=== PATIENT | male | born 1945 | race Caucasian/White ===

== ENCOUNTER 2023-02-20 07:51 | Observation (INO) ==
--- NOTE | 2023-02-11 08:56 | Anesthesiology Consultation ---
Date of Service February 11, 2023 Assessment & Plan (1) Encounter for pre-operative examination: Plan - check BSG am DOS. - Per teacher on 02/11/2023: No known infectious disease contacts, current infectious disease symptoms in past 10 days or COVID positive test result in the past 30 days. Chart Review Chart Review: Acceptable Risk for Surgery and Patient NOT seen in Pre Admission Testing History Surgery Operation Date: 02/20/23 07:30 Proposed Procedures p Robotic Laparoscopic Assisted Partial Nephrectomy - Yuri Herring MD Height/Weight Height: 5 ft 9 in Weight: 90.718 kg Allergies Allergy/AdvReac Type Severity Reaction Status Date / Time No Known Allergies Allergy Verified 02/11/23 08:11 Medications Home Medications Medication Instructions Recorded Confirmed Last Taken amlodipine 10 mg tablet 10 mg PO QPM 05/15/21 02/11/23 Unknown aspirin 81 mg chewable tablet 81 mg PO DAILY 05/15/21 02/11/23 Unknown atorvastatin 20 mg tablet 20 mg PO QPM 05/15/21 02/11/23 Unknown benazepril 40 mg tablet 40 mg PO QAM 05/15/21 02/11/23 Unknown blood sugar diagnostic (Contour 05/15/21 12/18/22 Unknown Next Test Strips) brimonidine 0.2 %-timolol 0.5 % 1 drp ophthalmic (eye) BID 05/15/21 02/11/23 Unknown eye drops (Combigan) latanoprost 0.005 % eye drops 1 drp ophthalmic (eye) HS 05/15/21 02/11/23 Unknown (Xalatan) metformin 1,000 mg tablet 1,000 mg PO BID 05/15/21 02/11/23 Unknown metoprolol tartrate 25 mg tablet 12.5 mg PO BID 05/15/21 02/11/23 Unknown multivitamin 1 tab PO QAM 05/15/21 02/11/23 Unknown Macu-Health 1 tab PO QAM 02/11/23 02/11/23 Unknown coenzyme Q10 100 mg capsule (Co 100 mg PO QAM 02/11/23 02/11/23 Unknown Q-10) semaglutide 14 mg tablet (Rybelsus) 14 mg PO QAM 02/11/23 02/11/23 Unknown Past Medical History Medical History [place] (hard of hearing) no hearing aides Renal mass High cholesterol Kidney stones remote hx - passed on his own. Diabetes mellitus NIDDM HTN (hypertension) Past Family History Family History Other No family history of adverse response to anesthesia Past Surgical History Surgical History History of tooth extraction Social History Smoking Status: Current every day smoker Do You Dip or Chew Tobacco: No Hx Alcohol Use: No Hx Substance Use: No substance use type: does not use Testing Laboratory Results 02/04/2023 WBC: 8.4 H/H: 15/45 PLATELETS: 329 SODIUM: 136 POTASSIUM: 4.4 CHLORIDE: 105 CO2: 25 BUN: 17 CREATININE: 0.9 GLUCOSE: 267 Urine culture: no growth at 48 hours. Electrocardiogram Date: 02/04/23 Ectopic atrial rhythm, rate 64 bpm Chest X-Ray Date: 02/04/23 Overall appearance of the lungs suggests emphysema. There is no evidence of focal abnormality at this time. Other Testing Abdomen pelvis CT 11/12/22 1. Again seen is a 3.0 cm enhancing mass lesion in the interpolar right kidney. This has modestly increased in size as compared to 11/13/2021 and a renal n eoplasm remains the diagnosis of exclusion. 2. No additional enhancing lesion is seen in either kidney. 3. There is no evidence of metastatic disease in the abdomen or pelvis. 4. Advanced colonic diverticulosis without CT evidence of acute diverticulitis. 5. Right-sided nephrolithiasis. 6. Prostatomegaly with evidence of chronic bladder outlet obstruction. 7. Numerous bladder calculi are again noted. 8. Cholelithiasis. 9. Additional findings as above.
[~2023-02-20 07:51] MED LIST: DEXAMETHASONE SOD INJ 4 MG/ML VIAL ONE; LIDOCAINE 2% 2 ML VIAL/AMP(20MG/ML) INFIL ONE; LR 15ML/HR IV SCH; ONDANSETRON INJ 2 MG/ML 2 ML VIAL ONE; PROPOFOL IV EMULSION 10 MG/ML 20 ML VIAL IV ONE; REMIFENTANIL HCL 1 MG VIAL IV ONE; ROCURONIUM BROMIDE 10 MG/ML 5 ML VIAL IV ONE; ceFAZolin 2000MG 2,000 MG/15 ML SYR IV SCH; fentaNYL citrate PF 100 MCG/2 ML VIAL ONE
[2023-02-20] MEDS ORDERED: BUPIVACAINE 0.5 % 5 MG/1 ML MPF 30ML VIAL ONE (08:37)
--- NOTE | 2023-02-20 09:23 | History & Physical Report ---
Date of Service February 20, 2023 Assessment & Plan (1) Renal mass: Plan: We reviewed the plan for laparoscopic robot-assisted right partial nephrectomy. We reviewed risks and benefits of the surgery. He expressed understanding and willingness to proceed. History of Present Illness Primary Care Provider: Fariha Harper MD This is a 77-year-old male followed by urology for right-sided renal mass. The mass has increased in size on surveillance, therefore he presents to the OR today for robot-assisted right partial nephrectomy. He denies any changes in his health. Allergies Allergy/AdvReac Type Severity Reaction Status Date / Time No Known Allergies Allergy Verified 02/20/23 08:25 Home Medications Medication Instructions Recorded Confirmed Type amlodipine 10 mg tablet 10 mg PO QPM 05/15/21 02/20/23 History aspirin 81 mg chewable tablet 81 mg PO DAILY 05/15/21 02/20/23 History atorvastatin 20 mg tablet 20 mg PO QPM 05/15/21 02/20/23 History benazepril 40 mg tablet 40 mg PO QAM 05/15/21 02/20/23 History blood sugar diagnostic (Contour 05/15/21 12/18/22 History Next Test Strips) brimonidine 0.2 %-timolol 0.5 % 1 drp ophthalmic (eye) BID 05/15/21 02/20/23 History eye drops (Combigan) latanoprost 0.005 % eye drops 1 drp ophthalmic (eye) HS 05/15/21 02/20/23 History (Xalatan) metformin 1,000 mg tablet 1,000 mg PO BID 05/15/21 02/20/23 History metoprolol tartrate 25 mg tablet 12.5 mg PO BID 05/15/21 02/20/23 History multivitamin 1 tab PO QAM 05/15/21 02/20/23 History Macu-Health 1 tab PO QAM 02/11/23 02/20/23 History coenzyme Q10 100 mg capsule (Co 100 mg PO QAM 02/11/23 02/20/23 History Q-10) semaglutide 14 mg tablet (Rybelsus) 14 mg PO QAM 02/11/23 02/20/23 History Past Med/Surg History Medical History [place] (hard of hearing) no hearing aides Renal mass High cholesterol Kidney stones remote hx - passed on his own. Diabetes mellitus NIDDM HTN (hypertension) Surgical History History of tooth extraction Family History Other No family history of adverse response to anesthesia Social History (Updated 05/15/21 @ 11:40 by Abida Hernandez) Smoking Status: Current every day smoker Tobacco Type: Pipe Second Hand Exposure: Yes (hx); Do You Dip or Chew Tobacco: No; Tobacco Cessation Education Requested by Patient: No Hx Alcohol Use: No Hx Substance Use: No Preferred Language: Mosotho Communication Ability: Effective [place] [employer] Member Required: No Beliefs That Will Affect Care: None marital status: Current Living Situation: Spouse current occupational status: retired Other Information That Helps Us Care for You: No Assistive Devices: Glasses Review of Systems 12 point review of systems negative except for otherwise indicated. Physical Exam Constitutional: well developed and well nourished; no acute distress Eyes: + anicteric sclerae; pupils not irregula r Respiratory: normal respiratory effort; no respiratory distress, does not use accessory muscles and no cough Cardiovascular: well perfused Gastrointestinal (Abdomen): Inspection/Auscultation: abdomen normal to inspection; abdomen not distended Musculoskeletal: Extremities: extremities normal to inspection Skin: normal turgor; no rashes and no lesions Neurologic: moves all extremities and awake Psychiatric: Orientation: alert and oriented x 3 Results & Data Vital Signs (Past 12 Hours) Vital Signs Temp Pulse Resp BP Pulse Ox O2 Del Method 02/20/23 08:27 37.1 C 74 20 156/79 H 97 Room Air
[2023-02-20] MEDS ORDERED: SURGICEL ABSORB HEMOSTAT 2IN X 14IN TOP ONE (10:03)
[2023-02-20] MEDS ORDERED: TISSEEL FIBRIN SEALANT 10ML TOP ONE (10:03)
[2023-02-20] MEDS ORDERED: FLOSEAL HEMOSTATIC MATRIX 10ML TOP ONE (10:03)
[2023-02-20] MEDS ORDERED: ePHEDrine sulfate 50 MG/5 ML SYR ONE (12:07)
[2023-02-20] MEDS ORDERED: HYDROmorphone INJ 2 MG/ML SYR/VIAL ONE (12:32)
[2023-02-20] MEDS ORDERED: SUGAMMADEX SODIUM 200 MG/2 ML VIAL IV ONE (12:36)
--- NOTE | 2023-02-20 13:26 | Operative Report ---
PG Post Operative Report Pre & Post Diagnosis Operation Date: 02/20/23 09:30 Pre-Op Diagnosis: Right Renal Mass Post-Op Diagnosis: Right Renal Mass I identified the patient and participated in the time-out.: Yes Procedure Operation Date: 02/20/23 09:30 Actual Procedures p Robotic assisted Laparoscopic Partial Nephrectomy-Right(Right) - Yuri Herring MD Surgeon Yuri Herring MD Board Mixer Tender VJ Luis Estimated Blood Loss 400 Findings Consistent with Post-Op Diagnosis Specimens Right renal mass Drains 16 [place] Pathak catheter per urethra [place] drain by right upper quadrant incision Anesthesia Type General Complications none Disposition Accompanied Patient To Recovery: Yes Disposition: Recovery Room Indications This is a 77-year-old male followed by urology for renal mass. The mass has been gradually increasing in size and he was not thought to be a candidate for ablation. He presents to the OR today for right partial nephrectomy. Description of Procedure The patient was identified and informed consent was obtained. He was marked on the right side and was brought to the operating room where general anesthesia was initiated. He was placed in a flank position with the right side elevated. All pressure points were carefully padded. A timeout was then performed. A surgical marker was used to draw a line approximately 7 cm to the left of the umbilicus, in the mid clavicular area. Anticipated port sites were marked starting approximately 2 fingerbreadths below the costal margin. Subsequent ports were anticipated to be 6 to 7 cm spaced down this line. An incision was made at the second anticipated site, then dissection was carried down to the fascia. A Veress needle was used to obtain access to the peritoneum. Good position was confirmed with a negative aspiration, appropriate drop test and low opening insufflation pressure. The abdomen was then inflated with CO2 to 15 mmHg. The first robotic port was then placed and the camera was inserted. The abdominal cavity was surveyed. There was no injury to abdominal viscera. There were some adhesions of the colon to the right wall. He had a small umbilical hernia. His liver was somewhat large. The remaining 3 robotic ports were placed under direct visualization. A 12 mm wet process miller head assistant port was then placed in the midline above the umbilicus. The robot was then docked. I reflected the colon along the white line of Toldt to expose Gerota's fascia. The duodenum was Kocherized. Once the colon was sufficiently reflected, the gonadal vessels and ureter were identified. This dissection was carried cephalad, his liver was in the way. A 5 mm port was placed to serve as a liver retractor. Eventually the renal hilum was identified and dissected. He had 1 renal artery and 1 renal vein. Adequate windows were dissected to facilitate placement of bulldog clamps on both vessels. I then turned my attention toward the renal mass. There is a prominent bulge on the lower pole of the kidney which was suspicious for the mass. Gerota's fascia was incised and the fat was dissected away to expose the renal mass and capsule. The intraoperative ultrasound was then introduced and used to survey this area of the kidney. The mass appeared to be approximately 3 cm in diameter. The bulldog clamps were then applied to the renal artery and the renal vein. There was good blanching of the kidney. The renal mass was sharply excised leaving a margin of normal-appearing kidney tissue around the mass itself. Any point bleeding vessels were cauterized. Once the mass was free from the kidney, renorrhaphy was performed using a 2 layer approach. A 2-0 V-Loc suture was placed in the deep portion of the kidney defect and secured using Hem-o-jerome clips on both sides. The renal capsule was then reapproximated using interrupted 2-0 V-Loc sutures also secured with Hem-o-loks and Lapra-Ty's. There was mild bleeding from the incision. The bulldog clips were then removed and there was still mild bleeding. An additional 2-0 Vicryl suture was placed across the bleeding area and a bolster of Surgicel was secured under the suture. At this point, there was good hemostasis. Total warm ischemia time was approximately 22 minutes. A layer of Surgicel and Tisseel and Floseal were applied to the resection area and the hilum. The renal mass was placed in a specimen bag. Final survey of the abdomen revealed good hemostasis and no injury to intra-abdominal contents. The robot was dedocked. The specimen was extracted through the wet process miller head assistant port in the midline and was sent for analysis labeled as left renal mass. A drain was left in place through the uppermost port. The incisions were then closed. The extraction site was closed using a deep 0 Vicryl running suture for the fascia. All wounds were anesthetized using 0.5% Marcaine. Skin was closed using running subcuticular 4-0 Monocryl for the ex traction site and buried interrupted 4-0 Monocryls for the robot sites. The drain was secured using a 3-0 nylon suture. The patient was then awakened from anesthesia and brought to the PACU in stable condition. All sponge and instrument counts were correct at the end of the case. Of note, Janelle ZABALA, acted as bedside wet process miller head assistant for the majority of the case, helping with initial positioning, access, retraction, dissection and with closing. Dr. Aman Valera, acted as bedside wet process miller head assistant for the mass excision and renorrhaphy. I attest to the content of the Intraoperative Record and any orders documented therein. Any exceptions are noted below.
[2023-02-20] MEDS ORDERED: fentaNYL citrate PF 100 MCG/2 ML VIAL ONE (13:29)
[2023-02-20] MEDS ORDERED: ePHEDrine sulfate 50 MG/ML AMP IV PRN (13:29)
[2023-02-20] MEDS ORDERED: ONDANSETRON INJ 2 MG/ML 2 ML VIAL IV PRN ×2 (13:29→15:19)
[2023-02-20] MEDS ORDERED: ATROPINE SULFATE 0.1 MG/ML 10ML SYR IV PRN (13:29)
[2023-02-20] MEDS: fentaNYL citrate PF 100 MCG/2 ML VIAL IV PRN ×4 (13:29→13:44)
[2023-02-20] MEDS: HYDROmorphone INJ 1 MG/ML SYRINGE IV PRN ×8 (13:49→14:25)
[2023-02-20] MEDS ORDERED: NovoLIN-R INSULIN PER UNIT CHARGE ONE (13:57)
[2023-02-20] MEDS ORDERED: NovoLIN-R INSULIN PER UNIT CHARGE IV ONE (14:00)
[2023-02-20 14:48] LABS: Hematocrit (blood only) 43.8 % (42.0-52.0); Hemoglobin 14.7 g/dl (14.0-18.0); Mean Corpuscular Hemoglobin 28.8 pg (25.0-34.0); Mean Corpuscular Hgb Conc 33.6 g/dL (32.0-36.0); Mean Corpuscular Volume 85.7 fL (80.0-100.0); Mean Platelet Volume 9.8 fL (9.4-12.4); Platelet Count 297 K/uL (130-400); RDW Coefficient of Variation 13.4 % (11.5-14.5); RDW Standard Deviation 41.9 fL (36.4-46.3); Red Blood Count 5.11 M/uL (4.70-6.10); White Blood Count 13.35 K/ul (4.8-10.8)
[2023-02-20 14:51] LABS: BUN Creatinine Ratio 16.1 (10-20); Calcium 8.5 mg/dl (8.6-10.3); Creatinine Clr Calc Pharmacy 65.3 ml/min; Est GFR (African American) 90.2 ml/min; Est GFR (Non-African American) 77.8 ml/min; Potassium 4.4 mmol/L (3.5-5.1)
[2023-02-20 15:10] LABS: Basophils # (auto) 0.03 K/uL (0.00-0.20); Basophils % (auto) 0.2 %; Eosinophils # (auto) 0.05 K/uL (0.00-0.50); Eosinophils % (auto) 0.4 %; Immature Granulocytes # (auto) 0.06 K/uL (0.01-0.20); Immature Granulocytes % (auto) 0.4 %; Lymphocytes # (auto) 0.63 K/uL (1.20-3.40); Lymphocytes % (auto) 4.7 %; Monocytes # (auto) 0.07 K/uL (0.11-0.59); Monocytes % (auto) 0.5 %; Neutrophils # (auto) 12.51 K/uL (1.40-6.50); Neutrophils % (auto) 93.8 %
[2023-02-20] MEDS ORDERED: PHARMACY GLYCEMIC MGMT CONSULT PRN (15:19)
[2023-02-20] MEDS ORDERED: MoRPHine SULFATE 2 MG/ML CARP IV PRN (15:19)
[2023-02-20] MEDS ORDERED: oxyCODONE HCL IR 5 MG TAB (IMMEDIATE RELEASE) PO PRN (15:19)
[2023-02-20] MEDS ORDERED: MoRPHine SULFATE 4 MG/ML 1 ML CARP\\VIAL IV PRN (15:19)
[2023-02-20] MEDS: oxyCODONE HCL IR 5 MG TAB (IMMEDIATE RELEASE) PO PRN (15:55)
[2023-02-20] MEDS: LACTATED RINGER'S 1,000 ML IV SCH (16:00)
--- NOTE | 2023-02-20 16:06 | Anesthesiology Progress Note ---
Date of Service February 20, 2023 Anesthesia Post Procedure Vital Signs Vital Signs: Temp Pulse Pulse Resp BP Pulse Ox O2 Del Method 02/20/23 15:56 36.4 C L 83 18 151/87 H 97 Room Air 02/20/23 15:25 36.8 C 78 18 157/71 H 96 Room Air 02/20/23 15:10 66 19 133/67 97 Room Air 02/20/23 14:55 74 14 144/77 H 95 Room Air 02/20/23 14:40 36.2 C L 77 24 151/83 H 96 Room Air 02/20/23 14:30 75 13 126/60 95 Room Air 02/20/23 14:20 66 11 L 134/59 L 92 Room Air 02/20/23 14:10 70 16 130/60 93 Room Air 02/20/23 14:00 71 17 144/73 H 93 Room Air 02/20/23 13:50 71 19 156/88 H 94 Room Air 02/20/23 13:40 73 16 154/80 H 95 Room Air 02/20/23 13:30 77 12 123/80 97 Room Air 02/20/23 13:20 74 18 147/80 H 96 Room Air 02/20/23 13:13 36.4 C L 76 24 158/84 H 98 Oxymask 02/20/23 08:27 37.1 C 74 20 156/79 H 97 Room Air O2 Flow Rate 02/20/23 15:56 02/20/23 15:25 02/20/23 15:10 02/20/23 14:55 02/20/23 14:40 02/20/23 14:30 02/20/23 14:20 02/20/23 14:10 02/20/23 14:00 02/20/23 13:50 02/20/23 13:40 02/20/23 13:30 02/20/23 13:20 02/20/23 13:13 6 02/20/23 08:27 Pain Intensity Right Abdomen: Pain Intensity: 10 Transfer of Care Handoff Completed per policy Notes Mental Status: alert / awake / arousable Patient Amnestic to Procedure: Yes Nausea / Vomiting: adequately controlled Pain: adequately controlled Airway Patency, RR, SpO2: stable & adequate BP & HR: stable & adequate Hydration State: stable & adequate Anesthetic Complications: no major complications apparent and Pt Satisfied with anesthetic care Notes: Patient glucose >350 in PACU. Administered 8 u IV insulin. Trending downward.
[2023-02-20] MEDS ORDERED: CARBOHYDRATES FOR HYPOGLYCEMIA PO PRN (16:15)
[2023-02-20] MEDS ORDERED: GLUCOSE 10 TAB/TUBE PO PRN (16:15)
[2023-02-20] MEDS ORDERED: GLUCAGON FOR INJ 1 MG VIAL IM PRN (16:15)
[2023-02-20] MEDS ORDERED: GLUCOSE 40% GEL 15 GM TUBE PO PRN (16:15)
[2023-02-20] MEDS ORDERED: DEXTROSE 50% 50 ML SYRINGE IV PRN (16:15)
[2023-02-20] MEDS: ceFAZolin 2000MG 2,000 MG/15 ML SYR IV SCH (17:09)
[2023-02-20] MEDS: INSULIN ASPART PER UNIT CHARGE SC SCH ×2 (17:18→21:09)
[2023-02-20] MEDS: ACETAMINOPHEN 325 MG TAB PO SCH (18:28)
[2023-02-20] MEDS ORDERED: amLODIPine BESYLATE 5 MG TAB PO SCH (21:00)
[2023-02-20] MEDS ORDERED: LATANOPROST 0.005% OP SOLN 2.5 ML BTL OP SCH (21:00)
[2023-02-20] MEDS ORDERED: ATORVASTATIN 20 MG TAB PO SCH (21:00)
[2023-02-20] MEDS: TIMOLOL OPB SCH (21:07)
[2023-02-20] MEDS: BRIMONIDINE TARTRATE OPB SCH (21:07)
[2023-02-20] MEDS: DOCUSATE SODIUM 100 MG CAP PO SCH (21:10)
[2023-02-20] MEDS: METOPROLOL TARTRATE 25 MG TAB PO SCH (21:10)
[2023-02-20] MEDS ORDERED: LANTUS PER UNIT CHARGE SC ONE (21:30)
[2023-02-21] MEDS: INSULIN ASPART PER UNIT CHARGE SC SCH ×4 (00:15→12:17)
[2023-02-21] MEDS: ACETAMINOPHEN 325 MG TAB PO SCH ×3 (00:16→13:46)
[2023-02-21] MEDS: oxyCODONE HCL IR 5 MG TAB (IMMEDIATE RELEASE) PO PRN ×2 (00:17→11:01)
[2023-02-21] MEDS: LACTATED RINGER'S 1,000 ML IV SCH (01:08)
[2023-02-21] MEDS: ceFAZolin 2000MG 2,000 MG/15 ML SYR IV SCH (01:08)
[2023-02-21 08:23] LABS: Basophils # (auto) 0.03 K/uL (0.00-0.20); Basophils % (auto) 0.3 %; Eosinophils # (auto) 0.07 K/uL (0.00-0.50); Eosinophils % (auto) 0.6 %; Hemoglobin 13.2 g/dl (14.0-18.0); Immature Granulocytes # (auto) 0.03 K/uL (0.01-0.20); Immature Granulocytes % (auto) 0.3 %; Lymphocytes # (auto) 1.31 K/uL (1.20-3.40); Lymphocytes % (auto) 11.2 %; Mean Corpuscular Hemoglobin 28.2 pg (25.0-34.0); Mean Corpuscular Volume 85.5 fL (80.0-100.0); Mean Platelet Volume 9.6 fL (9.4-12.4); Monocytes # (auto) 1.14 K/uL (0.11-0.59); Monocytes % (auto) 9.7 %; Neutrophils # (auto) 9.12 K/uL (1.40-6.50); Neutrophils % (auto) 77.9 %; Platelet Count 298 K/uL (130-400); RDW Coefficient of Variation 13.6 % (11.5-14.5); RDW Standard Deviation 42.5 fL (36.4-46.3); Red Blood Count 4.68 M/uL (4.70-6.10)
[2023-02-21 08:35] LABS: BUN Creatinine Ratio 12.7 (10-20); Calcium 8.5 mg/dl (8.6-10.3); Creatinine Clr Calc Pharmacy 85.6 ml/min; Est GFR (African American) 103.4 ml/min; Est GFR (Non-African American) 89.2 ml/min; Potassium 3.6 mmol/L (3.5-5.1)
[2023-02-21] MEDS: TIMOLOL OPB SCH (08:44)
[2023-02-21] MEDS: BRIMONIDINE TARTRATE OPB SCH (08:44)
[2023-02-21] MEDS: METOPROLOL TARTRATE 25 MG TAB PO SCH (08:45)
[2023-02-21] MEDS: DOCUSATE SODIUM 100 MG CAP PO SCH (08:46)
[2023-02-21] MEDS ORDERED: ENALAPRIL MALEATE 10 MG TAB PO SCH (09:00)
[2023-02-21] MEDS ORDERED: LANTUS PER UNIT CHARGE SC SCH (09:00)
[2023-02-21] MEDS ORDERED: HEPARIN SOD 5,000 UNIT/0.5 ML VIAL SQ SCH (09:00)
[2023-02-21 09:33] LABS: Estimated Average Glucose 212 mg/dl
--- NOTE | 2023-02-21 09:53 | Pharmacy Report ---
Pharmacy Glycemic Short Note 2 - Date of Service February 21, 2023 - Glycemic Short BSG Results (Last 24 hours): 02/20/23 02/20/23 02/20/23 13:46 13:48 14:12 Glucose 328 H* POC Glucose 302 H* 349 H* 02/20/23 02/20/23 02/20/23 14:35 16:30 20:49 Glucose POC Glucose 261 H 245 H 296 H 02/20/23 02/21/23 02/21/23 23:49 03:47 07:22 Glucose 146 H POC Glucose 200 H 153 H 02/21/23 07:40 Glucose POC Glucose 144 H OUTPATIENT ANTIDIABETIC REGIMEN: * Metformin 1000mg PO BID * Rybelsus 14mg PO Daily * A1c 9% 02/21/23 ASSESSMENT: * 77-year-old male POD1 right partial nephrectomy. Type 2 diabetic, uncontrolled on oral medications listed above. * Patient received dexamethasone 4mg IV yesterday, blood sugars elevated all day with 8 units IV regular insulin, 15 units Lantus and 17 units NovoLog. * Euglycemic this morning, continue Lantus and NovoLog. No further steroids ordered at this time. PLAN FOR INPATIENT GLYCEMIC CONTROL: * Hold outpatient oral diabetes medications * Basal insulin * Lantus 15 units SQ daily * Bolus insulin * NovoLog per scale ACHS or Q6hrs while NPO * Goal Range: Low 110 mg/dL - High 140 mg/dL * Correction Factor: 25 mg/dL/unit * Nutritional / Prandial insulin per carb ratio of 1 unit per 9 grams CHO consumed
--- NOTE | 2023-02-21 10:27 | Urology Progress Note ---
Date of Service February 21, 2023 Assessment & Plan (1) Renal mass: Plan: Overall doing well s/p partial nephrectomy on 02/21/2023. He is eating, ambulating and pain is reasonably well-controlled. I think he is appropriate for discharge home today. We will remove his Pathak catheter to make sure he can void and plan on drain removal prior to discharge. Admission and Anticipated Discharge Date Admission Date: February 20, 2023 Subjective Feeling well this morning Tolerating a diet with no nausea or vomiting Has been up and ambulating a little Still having some abdominal pain, sanju-incisional and at the surgical site. WBC 11.7, hemoglobin 13.2 this morning Creatinine 0.71 Physical Exam Physical Exam: Well-appearing, NAD Gastrointestinal (Abdomen): Abdomen slightly distended, appropriate sanju-incisional tenderness. Incisions with Dermabond in place. Results & Data Vital Signs (Past 12 Hours) Vital Signs Temp Pulse Resp BP Pulse Ox O2 Del Method 02/21/23 07:13 36.5 C 65 16 134/72 91 Room Air 02/21/23 03:51 36.8 C 69 16 148/80 H 94 Room Air 02/20/23 23:57 36.8 C 73 16 157/85 H 94 Room Air PG Care Time/CCT Total # of Minutes Spent Total Time Spent with Patient: Total time spent is greater than 50% in coordination of care (as documented) at patient's floor/unit and/or counseling patient: Coding Level of Care Code None Diagnoses Renal mass N28.89
--- NOTE | 2023-02-25 13:32 | Discharge Summary ---
Date of Service February 25, 2023 Admission HPI Per Admitting Provider This is a 77-year-old male followed by urology for right-sided renal mass. The mass has increased in size on surveillance, therefore he presents to the OR today for robot-assisted right partial nephrectomy. He denies any changes in his health. Admission Exam Per Admitting Provider Constitutional: well developed and well nourished; no acute distress Eyes: + anicteric sclerae; pupils not irregula r Respiratory: normal respiratory effort; no respiratory distress, does not use accessory muscles and no cough Cardiovascular: well perfused Gastrointestinal (Abdomen): Inspection/Auscultation: abdomen normal to inspection; abdomen not distended Musculoskeletal: Extremities: extremities normal to inspection Skin: normal turgor; no rashes and no lesions Neurologic: moves all extremities and awake Psychiatric: Orientation: alert and oriented x 3 Principal Diagnosis Right renal mass Discharge Exam Constitutional well developed and well nourished; no acute distress Respiratory normal respiratory effort; no respiratory distress and no labored breathing Gastrointestinal (Abdomen) Incisions appropriate, Dermabond intact Skin no rashes, warm and dry Neurologic moves all extremities and awake Psychiatric A+Ox3, euthymic affect Discharge Data Allergies Allergy/AdvReac Type Severity Reaction Status Date / Time No Known Allergies Allergy Verified 02/20/23 08:25 Procedures Performed Operation Date: 02/20/23 09:30 Actual Procedures p Robotic assisted Laparoscopic Partial Nephrectomy-Right(Right) - Yuri Herring MD Hospital Course (1) Renal mass: 77-year-old male admitted status post right partial nephrectomy on 02/21/[address] Herring. Patient tolerated procedure well. No acute issues postoperatively. He remained afebrile and hemodynamically stable. Postop labs were appropriate. Patient reported minimal pain. Ambulated without issue. Tolerated diet. Pathak catheter was removed on postop day #1. Patient failed his voiding trial and the catheter was replaced. [place] drain with minimal output and was removed prior to discharge. Patient was subsequently discharged home on postop day #1 with a Pathak catheter in place. He was in stable condition at time of discharge. Discharge instructions were reviewed, all questions were answered. A Total Time Total Time Spent Total Time Spent (In Minutes): 15 Discharge Plan Discharge Items Patient Disposition: Home - Self-Care Reason For Visit: Renal Mass Discharge Diagnosis: Renal mass Activity: Per Instructions section Non-emergency contact: Surgeon and Urologist Call non-emergency contact if: your pain is not controlled, you have a fever, your temperature is above 101, your wound has increased redness, your wound has increased drainage and your wound pain has increased Follow-up/Referrals: Yuri Herring MD [Physician] - 03/10/23 9:40 am Fariha Harper MD [Primary Care Provider] - Diet: Carb Consistent or DM2 Addtl Attending Provider Instructions: The surgery you had was: Robot-assisted partial nephrectomy Please take all medications as prescribed and keep all follow-ups as scheduled. Please call our office at [phone] with any questions, concerns or need to reschedule appointments for any reason. We are happy to assist you. Medications: Take Tylenol every 6 hours for baseline pain control If you are prescribed narcotics such as oxycodone, please take it according to the instructions on the label. Activity/Recovering at home: We recommend having someone with you for the first few days after surgery to help care for you. It is okay to shower tomorrow. Please avoid swimming, bathing or using hot tub until incisions are well healed. Avoid driving until you are not requiring pain medication any further. Walk at least a few times a day. Increase your distance, as you feel able. Stairs in your home are okay. Please avoid strenuous or sexual activity until your follow-up. No lifting anything more than 10 pounds for 8 weeks after surgery Use a stool softener (i.e. Colace) to prevent constipation, especially the first two weeks post operatively. You should not be straining/pushing to have a bowel movement. Follow-up: We will have you come to the urology office in 3 to 4 weeks for a wound check and pathology review. Call [facility] at [phone] if you experience: Chest pain or trouble breathing (call [phone] or go to the hospital). Fever of 101F or higher Symptoms of infection at incision site, including redness or swelling, warmth, or bad-smelling drainage Blood in the urine after the first 1 to 2 days. Pain that is not controlled with medicines Pending Studies at Discharge: No Stand-Alone Forms: My [facility] Medications and DC Order Prescriptions: New oxycodone 5 mg tablet 5 mg PO Q6H PRN (Reason: pain) Qty: 12 0RF Continued amlodipine 10 mg tablet 10 mg PO QPM aspirin 81 mg tablet,chewable 81 mg PO DAILY atorvastatin 20 mg tablet 20 mg PO QPM benazepril 40 mg tablet 40 mg PO QAM brimonidine-timolol [Combigan] 0.2-0.5 % drops 1 drp ophthalmic (eye) BID (DME) Contour Next Test Strips Strip See Rx Instructions .Route Rx Instructions: As directed metformin 1,000 mg tablet 1,000 mg PO BID metoprolol tartrate 25 mg tablet 12.5 mg PO BID multivitamin Tablet 1 tab PO QAM latanoprost [Xalatan] 0.005 % drops 1 drp ophthalmic (eye) HS coenzyme Q10 [Co Q-10] 100 mg Capsule 100 mg PO QAM Rybelsus 14 mg Tablet 14 mg PO QAM Macu-Health 1 tab PO QAM Discharge Orders: Discharge Order (Routine); Ordered 02/21/23 Ordered By: Bin Christine/Other Patient Handouts: Urinary Catheter Bag Empty Clean, Indwelling Urinary Catheter Dc, Leg Bag Care Dc, ED Pathak Catheter, Care Admission Data Admit Date/Time: 02/20/23 13:17 Attending Provider: Yuri Herring Admit Provider: Yuri Herring Primary Care Provider: Fariha Harper Other Interventions: Discharge Summary Assessment (RN) Last Done: 02/21/23 17:15 Coding Level of Care Code 93741 IN/OBS DISCH 30 MIN/LESS Diagnoses Renal mass N28.89
== END 2023-02-21 17:51 | disposition home or self-care (01) ==
LOC: ASU 07:51 → INTOOBSV 13:17 → 3E 13:17